=== PATIENT | male | born 1995 | race Two or more races ===

== ENCOUNTER 2017-03-05 23:49 | Emergency (ER) | payer OTHER ==
[2017-03-06] MEDS ORDERED: IBUPROFEN 600 MG TABLET PO STA (02:43)
[2017-03-06] MEDS ORDERED: CYCLOBENZAPRINE 10 MG Prepack 2 PO PRN (02:43)
[2017-03-06] MEDS ORDERED: HYDROcod/ACET 5/325 Prepack 6 PO STA (02:43)
[2017-03-06] MEDS ORDERED: IBUPROFEN 600 MG TABLET PO ONE (03:01)
[2017-03-06] MEDS ORDERED: oxyCODONE/ACET 5/325 Prepack 4 PO ONE (03:01)
[2017-03-06] MEDS ORDERED: CYCLOBENZAPRINE 10 MG Prepack 2 PO ONE (03:01)
[2017-03-06] MEDS ORDERED: HYDROcod/ACET 5/325 Prepack 6 PO ONE (03:08)
== END 2017-03-06 03:13 | disposition home or self-care (01) ==
DX: S39.012A Strain of muscle, fascia and tendon of lower back, initial encounter (principal); X58.XXXA Exposure to other specified factors, initial encounter
CPT/HCPCS: 99283; A9270